=== PATIENT | female | born 1950 | race African-American/Black ===

== ENCOUNTER 2023-07-12 10:56 | Emergency (ER) | payer OTHER, BC ==
[2023-07-12 11:31] VITALS: BMI 26.2
[2023-07-12] MEDS ORDERED: KETOROLAC TROMETHAMINE 15 MG/ML VIAL IM ONE ×2 (11:43→13:37)
[2023-07-12] MEDS ORDERED: KETOROLAC TROMETHAMINE 15 MG/ML VIAL ONE (13:08)
[2023-07-12 13:46] LABS: BASO % 0.1 % (0-2.0); EOS % 0.3 % (0-4.5); HEMATOCRIT 39.1 % (32.4-45.2); HEMOGLOBIN 12.8 GM/dL (10.7-15.3); LYMPH % 14.4 % (8-40); MCH 28.3 pg (25.7-33.7); MCHC 32.7 g/dl (32.0-36.0); MEAN CELL VOLUME 86.3 fl (80-96); MEAN PLT VOLUME 8.9 fl (7.5-11.1); MONO % 7.5 % (3.8-10.2); NEUT % 77.7 % (42.8-82.8); PLATELET COUNT 223 10^3/uL (134-434); RBC 4.53 M/mm3 (3.60-5.2); RDW 13.7 % (11.6-15.6); WHITE BLOOD COUNT 7.7 K/mm3 (4.0-10.0)
[2023-07-12 13:54] LABS: INR 1.04 (0.83-1.09); PROTHROMBIN TIME (PATIENT) 12.1 SEC (9.7-13.0)
[2023-07-12 13:57] LABS: ACTIVATED PTT 28.1 SECONDS (25.2-36.5); POTASSIUM 4.3 mmol/L (3.5-5.1)
[2023-07-12 13:58] LABS: CALCIUM 9.2 mg/dL (8.5-10.1)
[2023-07-12 14:00] LABS: ALBUMIN 3.5 g/dl (3.4-5.0); BLOOD UREA NITROGEN 9.6 mg/dL (7-18)
[2023-07-12 14:01] LABS: URIC ACID 3.6 mg/dL (2.6-7.2)
[2023-07-12 14:04] LABS: BILIRUBIN,TOTAL 0.7 mg/dL (0.2-1); TOT PROT 6.9 g/dl (6.4-8.2)
[2023-07-12 14:42] LABS: ERYTHROCYTE SEDIMENTATION RATE 23 mm/hr (0-30)
[2023-07-12] MEDS ORDERED: AMOX TR/POT CLAV 875MG/125MG TABLETS (FP) PO ONE (16:28)
[2023-07-12] MEDS ORDERED: AMOX TR/POT CLAV 875MG/125MG TABLETS (FP) ONE (17:11)
[2023-07-12 17:34] VITALS: BP 129/70; PULSE 76; RESP 16; TEMP 99.7
== END 2023-07-12 17:20 | disposition home or self-care (01) ==
LOC: JER 10:56
PROC: 3E0233Z Introduction of Anti-inflammatory into Muscle, Percutaneous Approach (ICD-10-PCS; principal; 2023-07-12)
DX: R22.1 Localized swelling, mass and lump, neck (principal); M54.2 Cervicalgia; Z20.822 Contact with and (suspected) exposure to COVID-19
CPT/HCPCS: 0241U-QW; 36415; 70491-TC; 71046-TC-FY; 76536-TC; 80053; 83615; 84550; 85025; 85610; 85651; 85730; 86140; 86850; 86900; 86901; 87070; 99285-25